=== PATIENT | female | born 1980 | race Caucasian/White ===

== ENCOUNTER 2019-10-19 18:06 | Inpatient (IN) | payer BC ==
[~2019-10-19 18:06] MED LIST: Bupivacaine PF 0.5% 30 ML VIAL ONE; Bupivacaine/Epinephrine 0.25% 30 ML VIAL ONE
[2019-10-19 19:42] LABS: Amnisure Test RUPTURE DETECTED (No Rupture)
[2019-10-19 19:44] LABS: Amnisure Internal Control QC ACCEPTABLE (ACCEPTABLE)
[2019-10-19] MEDS: Lactated Ringer's 1,000 ML IV SCH (20:00)
[2019-10-19] MEDS ORDERED: Ibuprofen 800 MG TAB PO PRN (20:32)
[2019-10-19] MEDS ORDERED: Lactated Ringer's 1,000 ML IV SCH (20:32)
[2019-10-19] MEDS ORDERED: NS w/ Oxytocin 10 units 500 ML IV SCH (20:32)
[2019-10-19] MEDS ORDERED: NS / Oxytocin 40 units/1000ml 1,000 ML IV PRN (20:32)
[2019-10-19] MEDS ORDERED: Ondansetron PF 4 MG/2 ML Vial IVP PRN (20:32)
[2019-10-19] MEDS ORDERED: Promethazine HCl 25 MG/ML VIAL IM PRN (20:32)
[2019-10-19] MEDS ORDERED: Lidocaine 1% (PF) 30 ML VIAL SC PRN (20:32)
[2019-10-19] MEDS ORDERED: hydrALAZINE 20 MG/ML VIAL SLOW IVP PRN (20:32)
[2019-10-19] MEDS ORDERED: HYDROcodone/Acetaminophen 5/325 mg Tablet PO PRN ×2 (20:32)
[2019-10-19] MEDS ORDERED: Butorphanol Tartrate 1 MG/ML VIAL SLOW IVP PRN (20:32)
[2019-10-19 21:09] LABS: Hemoglobin 12.3 g/dL (12.0-16.0); Mean Corpuscular HGB CONC 33.8 g/dL (32.0-36.0); Mean Corpuscular Hemoglobin 30.6 pg (27.0-31.0); Mean Corpuscular Volume 90.3 fL (78.0-98.0); Mean Platelet Volume 9.5 fL (7.4-10.4); Platelet Count 207 thou/uL (130-400); Red Blood Cell (RBC) Count 4.03 mill/uL (4.20-5.40)
[2019-10-19 21:46] LABS: Syphilis Antibody Nonreactive (Nonreactive); Syphilis Antibody Index 0.04 S/CO (<1.00 Non-Reactive)
[2019-10-19 22:46] LABS: HBSAg Index 0.12 S/CO (0-0.99); Hep B Surf Ag Non-Reactive S/CO (NonReactive)
[2019-10-20] MEDS ORDERED: Fentanyl 4 mcg/Bup 0.1% Cadd 100 ML ONE ×2 (00:27→08:15)
[2019-10-20] MEDS ORDERED: Acetaminophen 325 MG TAB PO PRN (01:21)
[2019-10-20] MEDS ORDERED: Promethazine HCl 25 MG/ML VIAL IM PRN (01:21)
[2019-10-20] MEDS ORDERED: Ondansetron PF 4 MG/2 ML Vial IVP PRN (01:21)
[2019-10-20] MEDS ORDERED: Naloxone HCl 0.4 mg/ml Vial IVP PRN ×2 (01:21)
[2019-10-20] MEDS ORDERED: diphenhydrAMINE 50 MG/ML VIAL IVP PRN (01:21)
[2019-10-20] MEDS ORDERED: Lactated Ringer's 500 ML IV PRN (01:21)
[2019-10-20] MEDS ORDERED: EPHEDRINE 25 MG/5 ML SYRINGE SLOW IVP PRN (01:21)
[2019-10-20] MEDS ORDERED: Fentanyl 4 mcg/Bupivacaine 0.1% Cassette 100 ML EPIDURAL SCH (01:30)
[2019-10-20] MEDS ORDERED: Communication Order-Pharmacy FS SCH (01:30)
[2019-10-20] MEDS: Lactated Ringer's 1,000 ML IV SCH ×2 (01:30→05:44)
[2019-10-20 04:17] VITALS: BMI 39.7
--- NOTE | 2019-10-20 08:05 | PRG ---
DATE OF SERVICE: 10/20/2019 TIME OF SERVICE: 0740. SUBJECTIVE: Ms. Asencio is progressing through labor. She is on Pitocin at 16 milliunits. She has stable vital signs and a category 1 heart rate tracing. Cervical exam reveals her cervix to be 6, 90 and +1 station, cephalic. IMPRESSION: Spontaneous onset active labor, hypertonic, prior LEEP, now with good dilatation and change of her cervix. PLAN: We will check outpatient to Dr. Montalvo, who is OB hospitalist coming on. Anticipate spontaneous vaginal delivery. Job ID: [id number]
[2019-10-20] MEDS ORDERED: NS / Oxytocin 40 units/1000ml 1,000 ML ONE ×2 (09:20→13:33)
--- NOTE | 2019-10-20 11:25 | PDOC.OPDEL ---
OB Operative/Delivery Note Delivery Dr/Surgeon: Ted Pre-Delivery Diagnosis: active labor Procedure/Post Delivery Dx: spontaneous vaginal delivery Weeks gestation: 38 Anesthesia: epidural - Findings A Sex: male - 1 min: 8 - 5 min: 9 - Additional Findings/Plan Placenta delivered: spontaneous Repaired Obstetrical Laceration: 1st degree (nuchal cord-tight. Clamped and cut to deliver head.)
[2019-10-20] MEDS ORDERED: Misoprostol 200 MCG TAB VAG PRN (11:27)
[2019-10-20] MEDS ORDERED: Benzocaine-Menthol 82.5 ML CAN TOP PRN (11:27)
[2019-10-20] MEDS ORDERED: Lanolin Ointment 7 GM TUBE TOP PRN (11:27)
[2019-10-20] MEDS ORDERED: Milk Of Magnesia 30 ML UDCUP PO PRN (11:27)
[2019-10-20] MEDS ORDERED: Bisacodyl 10 MG SUPP PR PRN (11:27)
[2019-10-20] MEDS ORDERED: hydrALAZINE 20 MG/ML VIAL SLOW IVP PRN (11:27)
[2019-10-20] MEDS ORDERED: traMADol HCl 50 MG TAB PO PRN (11:27)
[2019-10-20] MEDS ORDERED: Preparation H Ointment 28 GM TUBE PR PRN (11:27)
[2019-10-20] MEDS ORDERED: Adacel (T-DAP) 0.5 ML SYRINGE IM ONE (11:27)
[2019-10-20] MEDS ORDERED: NS / Oxytocin 40 units/1000ml 1,000 ML IV SCH (11:30)
[2019-10-20] MEDS: Ibuprofen 800 MG TAB PO SCH ×2 (13:54→21:10)
[2019-10-20] MEDS: Ferrous Sulfate 325 MG TAB PO SCH (15:06)
[2019-10-20] MEDS: Docusate Calcium (SURFAK) 240 MG CAP PO SCH (21:10)
--- NOTE | 2019-10-21 05:31 | PDOC.PP ---
Post Progress Note Post Day #: 1 Subjective: Feeling well. Pain controlled w/ ibuprofen. Passing gas and tolerating PO. Urinating without difficulty. PO intake tolerated: yes Flatus: yes Ambulation: yes Vital Signs (12 hours) Temp Pulse Resp BP Pulse Ox 10/21/19 04:25 98.7 F 104 H 18 119/67 10/20/19 23:10 99.0 F 107 H 20 106/59 L 99 10/20/19 20:00 98.0 F 88 20 112/69 99 Weight Weight 115.212 kg - Physical Examination General: NAD Cardiovascular: no m/r/g, RRR Respiratory: clear to auscultation bilaterally Abdominal: + bowel sounds, appropriately TTP Fundus firm & at: below umbilicus Neurological: no gross focal deficits Psychiatric: A&Ox3 Result Diagrams: 10/19/19 20:58 Additional Labs: Post Labs Blood Type O POSITIVE 10/19/19 23:07 Hep Bs Antigen Non-Reactive S/CO (NonReactive) 10/19/19 20:58 (1) Advanced maternal age (AMA) in Code(s): [id number] - Status: Acute (2) Vaginal delivery Code(s): O80 - ENCOUNTER FOR FULL-TERM UNCOMPLICATED DELIVERY Status: Acute - Assessment/Plan 39 yo G1 now P1 delivered at term: PPD #1 - routine care - encourage ambulation - anticipate d/c tomorrow.
[2019-10-21] MEDS: Ibuprofen 800 MG TAB PO SCH ×3 (05:43→22:12)
[2019-10-21] MEDS: Ferrous Sulfate 325 MG TAB PO SCH ×2 (07:10→07:11)
[2019-10-21] MEDS: Prenatal Vitamin 1 TAB PO SCH (08:32)
[2019-10-21] MEDS: Docusate Calcium (SURFAK) 240 MG CAP PO SCH ×2 (08:32→22:12)
--- NOTE | 2019-10-21 17:30 | PDOC.BPN ---
- Brief Progress Note Pt had a fever of 101.3 today, was receiving scheduled ibuprofen Notes she had body aches with this fever which was resolved after her next dose of ibuprofen On my exam pt was not significantly tender to palpation of her abdomen/uterus She has had continually diminishing lochia without notable discharge Plan: In the setting of a patient with prolonged rupture of membranes and evolving fever with anti-pyretic treatment we will elect to empirically treat for endometritis. Will initiate unasyn rx. Monitor vitals and new/changing sx.
[2019-10-21] MEDS: Ampicillin/Sulbactam 3 GM in Sodium Chloride 0.9% 100 ML IVPB SCH ×2 (18:07→23:42)
[2019-10-22] MEDS: Ibuprofen 800 MG TAB PO SCH ×2 (05:12→14:16)
[2019-10-22] MEDS: Ampicillin/Sulbactam 3 GM in Sodium Chloride 0.9% 100 ML IVPB SCH ×3 (05:12→16:51)
--- NOTE | 2019-10-22 06:42 | PDOC.PP ---
Post Progress Note Post Day #: 2 Subjective: Doing well this morning. Body aches have improved. No other complaints. PO intake tolerated: yes Ambulation: yes Vital Signs (12 hours) Temp Pulse Resp BP Pulse Ox 10/22/19 05:10 98.1 F 10/21/19 23:40 98.6 F 91 16 112/58 L 10/21/19 22:00 98.8 F 10/21/19 20:25 98.2 F 92 16 111/65 96 Weight Weight 254 lb - Physical Examination General: NAD Respiratory: non-labored breathing Abdominal: lochia (normal), no distention, appropriately TTP Fundus firm & at: umbilicus Neurological: no gross focal deficits Psychiatric: A&Ox3, normal affect Result Diagrams: 10/19/19 20:58 Additional Labs: Post Labs Blood Type O POSITIVE 10/19/19 23:07 Hep Bs Antigen Non-Reactive S/CO (NonReactive) 10/19/19 20:58 (1) fever, current hospitalization Code(s): O86.4 - PYREXIA OF UNKNOWN ORIGIN FOLLOWING DELIVERY Status: Acute (2) Vaginal delivery Code(s): O80 - ENCOUNTER FOR FULL-TERM UNCOMPLICATED DELIVERY Status: Acute - Assessment/Plan Continue unasyn for fever. No signs or symptoms but presumed endometritis due to prolonged rupture. Continue to monitor today.
[2019-10-22] MEDS: Ferrous Sulfate 325 MG TAB PO SCH (06:57)
[2019-10-22] MEDS: Prenatal Vitamin 1 TAB PO SCH (07:44)
[2019-10-22] MEDS: Docusate Calcium (SURFAK) 240 MG CAP PO SCH (07:44)
[2019-10-22] MEDS ORDERED: Sodium Chloride 0.9% 10 ML ONE (11:14)
[2019-10-22 16:38] VITALS: BP 129/79; TEMP 98.5
== END 2019-10-22 18:19 | disposition home or self-care (01) | DRG 806 ==
LOC: L&D/OP 18:06 → L&D 19:56 → 3SW 10-20 14:43
PROVIDERS: ADMIT Obstetrics & Gynecology; ATTEND Obstetrics & Gynecology
PROC: 10E0XZZ Delivery of Products of Conception, External Approach (ICD-10-PCS; principal; 2019-10-20)
PROC: 0HQ9XZZ Repair Perineum Skin, External Approach (ICD-10-PCS; 2019-10-20)
DX: O69.1XX0 Labor and delivery complicated by cord around neck, with compression, not applicable or unspecified (principal); O86.4 Pyrexia of unknown origin following delivery; Z37.0 Single live birth; O70.0 First degree perineal laceration during delivery; Z3A.38 38 weeks gestation of pregnancy
CPT/HCPCS: 36415; 51702; 84112; 85027; 86780; 86850; 86900; 86901; 87340; 99285; J0295; J2405; J2590; J3490; S0020